=== PATIENT | female | born 1995 | race African-American/Black ===

== ENCOUNTER 2017-12-23 20:22 | Emergency (ER) | payer SELFPAY ==
[~2017-12-23] VITALS: Ht 157.5 cm; Wt 82.0 kg
[2017-12-24 01:27] LABS: BASOPHILS % 0.8 % (0.0-2.0); EOSINOPHILS % 2.7 % (0.0-5.0); HEMATOCRIT. 40.7 % (36.0-48.0); HEMOGLOBIN. 13.7 g/dL (12.0-16.0); LYMPHOCYTES % 39.6 % (20.0-50.0); MEAN CORPUSCULAR HEMOGLOBIN 25.9 pg (28.0-32.0); MEAN CORPUSCULAR VOLUME 76.6 fL (81.0-99.0); MEAN PLATELET VOLUME 8.6 fl (7.4-10.4); MONOCYTES % 4.8 % (2.0-8.0); NEUTROPHILS % 52.1 % (40.0-76.0); PLATELET 253 x1000/uL (130-400); RED BLOOD CELL COUNT 5.31 mill/uL (4.2-5.4); RED CELL DISTRIBUTION WIDTH 15.7 % (11.6-14.6)
[2017-12-24 01:36] LABS: PROTHROMBIN TIME 10.7 sec (9.4-11.6)
[2017-12-24 01:39] LABS: CHLORIDE 104 mEq/L (98-107)
[2017-12-24 01:50] LABS: B-HCG QUANTITATIVE 182 mIU/mL (<3)
[2017-12-24 01:56] LABS: HCG SCREEN POSITIVE
[2017-12-24 03:36] VITALS: BP 119/79
[2017-12-24 03:43] LABS: CLARITY URINE CLEAR (CLEAR); COLOR URINE YELLOW (YELLOW); KETONES URINE NEGATIVE (NEGATIVE); LEUKOCYTE ESTERASE URINE NEGATIVE (NEGATIVE); NITRITE URINE NEGATIVE (NEGATIVE); OCCULT BLOOD URINE TRACE (NEGATIVE); PH URINE 5.5 (4.5-8.0); PROTEIN URINE NEGATIVE (NEGATIVE); SPECIFIC GRAVITY URINE 1.015 (1.005-1.030); UROBILINOGEN URINE 0.2 E.U./dL (0.2-1.0)
== END 2017-12-24 03:36 | disposition home or self-care (01) ==
LOC: ER 20:22
DX: M79.605 Pain in left leg (principal)
CPT/HCPCS: 36415; 80053; 81001; 84702; 84703; 85025; 85610; 93971; 99285